=== PATIENT | male | born 2000 | race Caucasian/White ===

== ENCOUNTER 2019-09-06 16:32 | Emergency (ER) | payer OTHER ==
[~2019-09-06] VITALS: Ht 182.9 cm; Wt 74.4 kg
[2019-09-06 16:50] VITALS: BP 136/74
== END 2019-09-06 17:38 | disposition home or self-care (01) ==
LOC: ER 16:35
DX: S93.505A Unspecified sprain of left lesser toe(s), initial encounter (principal); Z88.6 Allergy status to analgesic agent; W11.XXXA Fall on and from ladder, initial encounter; Y93.89 Activity, other specified; Y92.89 Other specified places as the place of occurrence of the external cause; Y99.8 Other external cause status